=== PATIENT | male | born 1990 | race African-American/Black ===

== ENCOUNTER 2018-10-29 09:02 | Emergency (ER) | payer MEDICAID, OTHER ==
[2018-10-29] MEDS ORDERED: Ibuprofen 600 MG TAB ONE (09:26)
--- NOTE | 2018-10-29 09:46 | RAD ---
THREE VIEWS OF THE LEFT FOOT: COMPARISON: None. HISTORY: Left foot pain after dropping table on the foot. FINDINGS: Three views left foot show diffuse soft tissue swelling. No underlying fracture or dislocation are s een. No degenerative changes are present. IMPRESSION: No evidence of acute osseous abnormality. POS: [facility]
== END 2018-10-29 09:49 | disposition home or self-care (01) ==
LOC: SCSER 09:02
DX: S90.32XA Contusion of left foot, initial encounter (principal); I10 Essential (primary) hypertension; E66.9 Obesity, unspecified; F31.9 Bipolar disorder, unspecified; F20.9 Schizophrenia, unspecified; Z79.899 Other long term (current) drug therapy; W20.8XXA Other cause of strike by thrown, projected or falling object, initial encounter

== ENCOUNTER 2018-12-13 08:49 | Emergency (ER) | payer OTHER, MEDICAID ==
[2018-12-13 10:20] LABS: #Basophils 0.1 thou/uL (0.0-0.2); #Eosinphils 0.1 thou/uL (0.0-0.7); #Lymphocytes 3.3 thou/uL (1.20-3.40); #Monocytes 0.6 thou/uL (0.11-0.59); #Neutrophils 3.2 thou/uL (1.40-6.50); %Basophils 1.2 % (0.0-1.0); %Eosinophils 0.7 % (0.0-10.0); %Lymphocytes 45.7 % (21.0-51.0); %Monocytes 7.7 % (0.0-10.0); %Neutrophils 44.7 % (42.0-75.0); Hemoglobin 13.6 g/dL (14.0-18.0); Mean Corpuscular HGB CONC 33.8 g/dL (32.0-36.0); Mean Corpuscular Hemoglobin 30.6 pg (27.0-31.0); Mean Corpuscular Volume 90.5 fL (78.0-98.0); Mean Platelet Volume 7.7 fL (7.4-10.4); Platelet Count 230 thou/uL (130-400); RBC Distribution Width 12.5 % (11.5-14.5); Red Blood Cell (RBC) Count 4.44 mill/uL (4.70-6.10); White Blood Cell (WBC) Count 7.2 thou/uL (4.8-10.8)
[2018-12-13 10:44] LABS: Amphetamine Not Detected (NotDetected); Benzodiazepine Screen Detected (NotDetected); Cocaine Metabolite Screen Not Detected (NotDetected); Medtox Reader # READER 4; Methadone Not Detected (NotDetected); Methamphetamine Not Detected (NotDetected); Opiate Screen Not Detected (NotDetected); Phencyclidine (PCP) Not Detected (NotDetected); THC/Cannabinoid Screen Not Detected (NotDetected); Tricyclic Screen Not Detected (NotDetected)
[2018-12-13 10:44] LABS: ALT (SGPT) 23 U/L (8-55); AST (SGOT) 20 U/L (5-34); Acetaminophen Less than 6.0 mcg/mL (10.0-30.0); Albumin 4.1 g/dL (3.5-5.0); Alcohol Less than 10 mg/dL (Less than 10); Alkaline Phosphatase 46 U/L (40-150); Anion Gap 11 mmol/L (10-20); BUN (Urea Nitrogen) 8 mg/dL (8.9-20.6); Bilirubin, Total 0.3 mg/dL (0.2-1.2); Calc. Creatinine Clearance 0 mL/min (70-130); Calcium 9.5 mg/dL (7.8-10.44); Carbon Dioxide 31 mmol/L (22-29); Chloride 103 mmol/L (98-107); Estimated GFR-MDRD Greater than 90; Globulin 3.6 g/dL (2.4-3.5); Glucose 141 mg/dL (70-105); Potassium 4.3 mmol/L (3.5-5.1); Protein, Total 7.7 g/dL (6.0-8.3); Salicylate Less than 8.0 mg/dL (15.0-30.0); Sodium 141 mmol/L (136-145)
[2018-12-13 10:45] LABS: Barbiturates Screen Not Detected (NotDetected); Medtox Control Line Valid? VALID (VALID); Oxycodone Screen Not Detected (NotDetected)
[2018-12-13] MEDS ORDERED: Triple Antibiotic Oint 1 GM Packet ONE (18:00)
[2018-12-13] MEDS ORDERED: Lorazepam 1 MG TAB ONE (19:53)
[2018-12-13] MEDS ORDERED: Metoprolol Tartrate 25 MG TAB ONE (19:54)
[2018-12-13] MEDS ORDERED: Haloperidol Lactate 5 MG/ML VIAL ONE (20:31)
[2018-12-13] MEDS ORDERED: diphenhydrAMINE 50 MG/ML VIAL ONE (20:31)
[2018-12-13] MEDS ORDERED: Lorazepam 2 MG/ML VIAL ONE (20:31)
[2018-12-13] MEDS ORDERED: Loratadine 10 MG TAB PO SCH (21:00)
[2018-12-13] MEDS ORDERED: Ramipril 5 MG CAP PO SCH (21:00)
[2018-12-13] MEDS ORDERED: levETIRAcetam 500 MG TAB PO SCH (21:00)
[2018-12-13] MEDS ORDERED: Amlodipine 10 MG TAB PO SCH (21:00)
[2018-12-13] MEDS ORDERED: Benztropine 1 MG TAB PO SCH (21:00)
[2018-12-13] MEDS ORDERED: Lorazepam 1 MG TAB PO SCH (21:00)
[2018-12-13] MEDS ORDERED: Metoprolol Tartrate 25 MG TAB PO SCH (21:00)
[2018-12-13] MEDS ORDERED: Divalproex Sodium DR 500 MG TAB PO SCH (21:00)
[2018-12-13] MEDS ORDERED: chlorproMAZINE HCl 25 MG TAB PO SCH (21:00)
[2018-12-14] MEDS ORDERED: Ferrous Sulfate 325 MG TAB PO SCH (09:00)
[2018-12-14] MEDS ORDERED: Escitalopram Oxalate 10 mg Tablet PO SCH (09:00)
[2018-12-14] MEDS ORDERED: Loratadine 10 MG TAB PO SCH (09:00)
[2018-12-14] MEDS ORDERED: Lorazepam 1 MG TAB ONE ×2 (09:40→20:07)
[2018-12-14] MEDS ORDERED: Bacitracin Zinc 1 Packet ONE (20:33)
[2018-12-14] MEDS ORDERED: Amlodipine 10 MG TAB PO SCH (21:00)
[2018-12-14] MEDS ORDERED: Silver Sulfadiazine 1% Cream 50 GM JAR TOP SCH (23:45)
== END 2018-12-13 11:40 | disposition home or self-care (01) ==
LOC: ERS 08:49
DX: S00.91XA Abrasion of unspecified part of head, initial encounter (principal); F43.0 Acute stress reaction; I10 Essential (primary) hypertension; E66.9 Obesity, unspecified; F31.9 Bipolar disorder, unspecified; F20.9 Schizophrenia, unspecified; Z79.899 Other long term (current) drug therapy; X58.XXXA Exposure to other specified factors, initial encounter
CPT/HCPCS: 36415; 80053; 80306; 80307; 84443; 85025; 96372; J1200; J1630; J2060; Q0161

== ENCOUNTER 2018-12-31 17:48 | Emergency (ER) | payer MEDICAID, OTHER ==
[2018-12-31 18:23] LABS: #Basophils 0.1 thou/uL (0.0-0.2); #Eosinphils 0.1 thou/uL (0.0-0.7); #Lymphocytes 3.4 thou/uL (1.20-3.40); #Monocytes 1.1 thou/uL (0.11-0.59); #Neutrophils 4.3 thou/uL (1.40-6.50); %Basophils 0.9 % (0.0-1.0); %Eosinophils 0.7 % (0.0-10.0); %Monocytes 12.3 % (0.0-10.0); %Neutrophils 48.1 % (42.0-75.0); Hemoglobin 12.9 g/dL (14.0-18.0); Mean Corpuscular HGB CONC 34.4 g/dL (32.0-36.0); Mean Corpuscular Hemoglobin 30.5 pg (27.0-31.0); Mean Corpuscular Volume 88.7 fL (78.0-98.0); Mean Platelet Volume 7.6 fL (7.4-10.4); Platelet Count 227 thou/uL (130-400); RBC Distribution Width 12.6 % (11.5-14.5); Red Blood Cell (RBC) Count 4.23 mill/uL (4.70-6.10)
[2018-12-31 18:32] LABS: Bilirubin Negative (Negative); Blood, Urine Negative (Negative); Clarity CLEAR (Clear); Glucose, Urine (Dipstick) Negative (Negative); Leukocyte Negative (Negative); Nitrite Negative (Negative); Protein, Urine (Dipstick) Negative (Neg-Trace); Specific Gravity, Urine 1.016 (1.002-1.036)
[2018-12-31 18:44] LABS: Acetaminophen Less than 6.0 mcg/mL (10.0-30.0); Alcohol Less than 10 mg/dL (Less than 10); Salicylate Less than 8.0 mg/dL (15.0-30.0)
[2018-12-31 18:46] LABS: ALT (SGPT) 19 U/L (8-55); AST (SGOT) 16 U/L (5-34); Albumin 3.9 g/dL (3.5-5.0); Alkaline Phosphatase 55 U/L (40-150); Anion Gap 13 mmol/L (10-20); BUN (Urea Nitrogen) 14 mg/dL (8.9-20.6); Bilirubin, Total 0.3 mg/dL (0.2-1.2); Calc. Creatinine Clearance 0 mL/min (70-130); Calcium 9.5 mg/dL (7.8-10.44); Carbon Dioxide 26 mmol/L (22-29); Chloride 104 mmol/L (98-107); Estimated GFR-MDRD Greater than 90; Globulin 3.8 g/dL (2.4-3.5); Glucose 139 mg/dL (70-105); Protein, Total 7.7 g/dL (6.0-8.3); Sodium 139 mmol/L (136-145)
[2018-12-31 18:47] LABS: Amphetamine Not Detected (NotDetected); Barbiturates Screen Not Detected (NotDetected); Benzodiazepine Screen Detected (NotDetected); Cocaine Metabolite Screen Not Detected (NotDetected); Medtox Control Line Valid? VALID (VALID); Medtox Reader # READER 4; Methadone Not Detected (NotDetected); Methamphetamine Not Detected (NotDetected); Opiate Screen Not Detected (NotDetected); Oxycodone Screen Not Detected (NotDetected); Phencyclidine (PCP) Not Detected (NotDetected); THC/Cannabinoid Screen Not Detected (NotDetected); Tricyclic Screen Not Detected (NotDetected)
[2019-01-01] MEDS ORDERED: Lorazepam 2 MG/ML VIAL ONE (05:48)
[2019-01-01] MEDS ORDERED: Haloperidol Lactate 5 MG/ML VIAL ONE (05:49)
[2019-01-01] MEDS ORDERED: diphenhydrAMINE 50 MG/ML VIAL ONE (05:49)
[2019-01-01] MEDS ORDERED: levETIRAcetam 500 MG TAB PO SCH (09:00)
[2019-01-01] MEDS ORDERED: Escitalopram Oxalate 10 mg Tablet PO SCH (09:00)
[2019-01-01] MEDS ORDERED: Ramipril 5 MG CAP PO SCH (09:00)
[2019-01-01] MEDS ORDERED: Benztropine 1 MG TAB PO SCH (09:00)
[2019-01-01] MEDS ORDERED: chlorproMAZINE HCl 25 MG TAB PO SCH (09:00)
[2019-01-01] MEDS ORDERED: Metoprolol Tartrate 25 MG TAB PO SCH (09:00)
[2019-01-01] MEDS ORDERED: Amlodipine 10 MG TAB PO SCH (21:00)
[2019-01-01] MEDS ORDERED: Cetirizine HCl 10 MG TAB PO SCH (21:00)
[2019-01-01] MEDS ORDERED: Lorazepam 1 MG TAB ONE (21:32)
[2019-01-02] MEDS ORDERED: Ferrous Sulfate 325 MG TAB PO SCH (09:00)
== END 2019-01-03 13:19 ==
LOC: ERS 17:48
DX: R45.1 Restlessness and agitation (principal); I10 Essential (primary) hypertension; E66.9 Obesity, unspecified; F31.9 Bipolar disorder, unspecified; F20.9 Schizophrenia, unspecified; Z79.899 Other long term (current) drug therapy
CPT/HCPCS: 36415; 80053; 80306; 80307; 81003; 84443; 85025; 96372; J1200; J1630; J2060; Q0161